=== PATIENT | male | born 1940 | race Caucasian/White ===

== ENCOUNTER 2018-10-24 19:40 | Emergency (ER) | payer MEDICARE, OTHER ==
[2018-10-24 20:17] LABS: Urine Appearance Cloudy; Urine Bacteria Absent (Absent); Urine Bilirubin Negative (Negative); Urine Blood 1+ (Negative); Urine Color Yellow; Urine Glucose Negative (Negative); Urine Ketones Negative (Negative); Urine Nitrite Negative (Negative); Urine Protein Negative (Negative); Urine Red Blood Cell Trace(0-2/hpf) (Absent); Urine Specific Gravity 1.012 (1.010-1.030); Urine Urobilinogen Negative (Negative); Urine White Blood Cell 3+(>20/hpf) (Absent)
[2018-10-24] MEDS ORDERED: Levofloxacin TAB* 500 MG PO ONE (22:22)
--- NOTE | 2018-10-24 22:31 | ED ---
GI/ HPI - HPI Summary HPI Summary: This patient is a 77 year old M presenting to [facility] with a chief complaint of dysuria for 5 days. Patient denies fever and back pain. Patient has a swollen prostate and takes an alpha-1 monster for it. He called his Urologist for an appointment but cannot get an appointment until Tuesday as symptoms have worsened. Patient states he is experiencing diarrhea as well. He has urinated since arriving at the ED. He rates his pain 7/10 in severity. - History of Current Complaint Chief Complaint: EDUrogenitalProblems Time Seen by Provider: 10/24/18 22:08 Stated Complaint: UNABLE TO URINATE Hx Obtained From: Patient Onset/Duration: Started Days Ago Severity: Moderate Current Severity: Moderate Pain Intensity: 7 Location of Pain: None Associated Signs and Symptoms: Positive: Diarrhea, UTI Symptoms Aggravating Factor(s): Urination - Allergy/Home Medications Allergies/Adverse Reactions: Allergies Allergy/AdvReac Type Severity Reaction Status Date / Time MS Tetracycline Allergy Unknown Unknown Verified 12/11/15 16:55 [Tetracycline] Reaction Details PMH/Surg Hx/FS Hx/Imm Hx Endocrine/Hematology History: Denies: Hx Diabetes Musculoskeletal History: Reports: Hx Rheumatoid Arthritis - ARTHRITIS IN BOTH FEET. - Surgical History Surgery Procedure, Year, and Place: Heart operation 07. Umbilical Hernia Repair 25 yrs ago. Cataracts Infectious Disease History: No Infectious Disease History: Denies: Traveled Outside the [place] in Last 30 Days - Family History Known Family History: Positive: Diabetes, Other - RA - Social History Alcohol Use: None Substance Use Type: Reports: None Smoking Status (MU): Never Smoked Tobacco Review of Systems Negative: Fever Positive: Diarrhea Positive: dysuria Negative: Myalgia All Other Systems Reviewed And Are Negative: Yes Physical Exam - Summary Physical Exam Summary: VITAL SIGNS: Reviewed. GENERAL: Patient is a well-developed and nourished MALE who is lying comfortable in the stretcher. Patient is not in any acute respiratory distress. HEAD AND FACE: No signs of trauma. No ecchymosis, hematomas or skull depressions. No sinus tenderness. EYES: PERRLA, EOMI x 2, No injected conjunctiva, no nystagmus. EARS: Hearing grossly intact. Ear canals and tympanic membranes are within normal limits. MOUTH: Oropharynx within normal limits. NECK: Supple, trachea is midline, no adenopathy, no JVD, no carotid bruit, no c- spine tenderness, neck with full ROM. CHEST: Symmetric, no tenderness at palpation LUNGS: Clear to auscultation bilaterally. No wheezing or crackles. CVS: Regular rate and rhythm, S1 and S2 present, no murmurs or gallops appreciated. ABDOMEN: Soft, non-tender. No signs of distention. No rebound no guarding, and no masses palpated. Bowel sounds are normal. EXTREMITIES: FROM in all major joints, no edema, no cyanosis or clubbing. NEURO: Alert and oriented x 3. No acute neurological deficits. Speech is normal and follows commands. SKIN: Dry and warm Triage Information Reviewed: Yes Vital Signs On Initial Exam: Initial Vitals Temp Pulse Resp BP Pulse Ox 97.5 F 70 18 149/79 96 10/24/18 19:50 10/24/18 19:50 10/24/18 19:50 10/24/18 19:50 10/24/18 19:50 Vital Signs Reviewed: Yes Diagnostics - Vital Signs Vital Signs Temp Pulse Resp BP Pulse Ox 10/24/18 21:53 97.8 F 72 20 170/95 95 10/24/18 19:50 97.5 F 70 18 149/79 96 - Laboratory Lab Results: Lab Results 10/24/18 Range/Units 20:00 Urine Color Yellow Urine Appearance Cloudy Urine pH 6.0 (5-9) Ur Specific [place] 1.012 (1.010-1.030) Urine Protein Negative (Negative) Urine Ketones Negative (Negative) Urine Blood 1+ A (Negative) Urine Nitrate Negative (Negative) Urine Bilirubin Negative (Negative) Urine Urobilinogen Negative (Negative) Ur Leukocyte Esterase 3+ A (Negative) Urine WBC (Auto) 3+(>20/hpf) A (Absent) Urine RBC (Auto) Trace(0-2/hpf) (Absent) Urine Bacteria Absent (Absent) Urine Glucose Negative (Negative) Lab Statement: Any lab studies that have been ordered have been reviewed, and results considered in the medical decision making process. GIGU Course/Dx - Course Course Of Treatment: his patient is a 77 year old M presenting to [facility] with a chief complaint of dysuria for 5 days. Urine labs were remarkable for infection. Patient was given anitbiotics and made an appointment with his Urologist in 3 days. The patient will be treated and discharged. This plan was discussed with the patient and he was agreeable with this plan. - Diagnoses Provider Diagnoses: Cystitis Discharge - Sign-Out/Discharge Documenting (check all that apply): Patient Departure - Discharge - Discharge Plan Condition: Stable Disposition: HOME Prescriptions: Levofloxacin TAB* [Levaquin TAB*] 500 mg PO DAILY #7 tab Patient Education Materials: Urinary Tract Infection in Men (ED) Referrals: Yeni Gunter MD [Primary Care Provider] - Additional Instructions: Return to ED with any new or worsening symptoms. Follow up with Urologist within 3-5 days. - Attestation Statements Document Initiated by Scribe: Yes Documenting Scribe: Santos Farfan Provider For Whom Scribe is Documenting (Include Credential): Heriberto Valerio MD Scribe Attestation: Santos Russell, scribed for Heriberto Valerio MD on 10/24/18 at 2246. Status of Scribe Document: Ready
[2018-10-24 23:05] VITALS: BP 141/92
--- NOTE | 2018-10-27 07:19 | PN ---
Progress Note - Progress Note Date of Service: 10/24/18 Note: Urine culture preliminary grew staph epidermidis 10-25,000 This is likely a contaminant and low colony count However patient was placed on Levaquin, and will not discontinue at this time.
== END 2018-10-24 22:58 | disposition home or self-care (01) ==
LOC: ED 19:40
DX: N30.90 Cystitis, unspecified without hematuria (principal); R30.0 Dysuria; R19.7 Diarrhea, unspecified
CPT/HCPCS: 81003; 81015; 87077; 87086; 87186; 99282

== ENCOUNTER 2018-10-28 17:59 | Emergency (ER) | payer MEDICARE, OTHER ==
--- NOTE | 2018-10-28 19:11 | ED ---
GI/ HPI - HPI Summary HPI Summary: The patient is a 77 y/o M presenting to [facility] with a chief complaint of urinary retention today. He had a altamirano catheter placed three days ago, which was draining normally at first, but then the urine started to come out of urethral meatus instead of the altamirano. He spoke with Dr. Grimaldo and Dr. Hudson, who told the pt to come to the ED. The dull pain is currently rated 2/10 in severity. Voiding aggravates the pain. He denies any changes in BM. - History of Current Complaint Chief Complaint: EDUrogenitalProblems Time Seen by Provider: 10/28/18 18:21 Stated Complaint: CATHETER ISSUES Hx Obtained From: Patient Onset/Duration: Started Hours Ago - today, Still Present Timing: Lasting Hours Severity: Moderate Current Severity: Mild Pain Intensity: 2 Pain Characteristics: Dull Associated Signs and Symptoms: Positive: Other: - NEGATIVE: changes in BM Aggravating Factor(s): Voiding Alleviating Factor(s): Nothing - Allergy/Home Medications Allergies/Adverse Reactions: Allergies Allergy/AdvReac Type Severity Reaction Status Date / Time Tetracyclines Allergy Unknown Verified 10/28/18 18:07 Reaction Details PMH/Surg Hx/FS Hx/Imm Hx Endocrine/Hematology History: Denies: Hx Diabetes Cardiovascular History: Denies: Hx Hypertension Respiratory History: Denies: Hx Asthma Musculoskeletal History: Reports: Hx Rheumatoid Arthritis - ARTHRITIS IN BOTH FEET. Opthamlomology History: Denies: Hx Legally Blind EENT History: Denies: Hx Deafness - Surgical History Surgery Procedure, Year, and Place: Heart operation 07. Umbilical Hernia Repair 25 yrs ago. Cataracts Infectious Disease History: No Infectious Disease History: Denies: Traveled Outside the [place] in Last 30 Days - Family History Known Family History: Positive: Diabetes, Other - RA - Social History Alcohol Use: None Hx Substance Use: No Substance Use Type: Reports: None Hx Tobacco Use: No Smoking Status (MU): Never Smoked Tobacco Do You Chew or Dip Tobacco: No Review of Systems Positive: Other - NEGATIVE: changes in BM Positive: other - urinary retention through catheter not draining properly All Other Systems Reviewed And Are Negative: Yes Physical Exam - Summary Physical Exam Summary: Appearance: Well-appearing, Well-nourished, lying in bed comfortable Skin: Warm, dry, no obvious rash Eyes: sclera anicteric, no conjunctival pallor ENT: mucous membranes moist Neck: deferred Respiratory: No signs of respiratory distress Cardiovascular: Appears well perfused, pulses are nml Abdomen: deferred Musculoskeletal: Moving all 4 extremities without obvious discomfort Neurological: Awake and alert, mentation is normal, speech is fluent and appropriate Psychiatric: affect is normal, does not appear anxious or depressed Triage Information Reviewed: Yes Vital Signs On Initial Exam: Initial Vitals Temp Pulse Resp BP Pulse Ox 97.3 F 75 16 131/56 97 10/28/18 18:07 10/28/18 18:07 10/28/18 18:07 10/28/18 18:07 10/28/18 18:07 Vital Signs Reviewed: Yes Diagnostics - Vital Signs Vital Signs Temp Pulse Resp BP Pulse Ox 10/28/18 18:07 97.3 F 75 16 131/56 97 - Laboratory Lab Statement: Any lab studies that have been ordered have been reviewed, and results considered in the medical decision making process. GIGU Course/Dx - Course Course Of Treatment: The patient is a 77 y/o M presenting to [facility] with a chief complaint of urinary retention today. He had a altamirano catheter placed three days ago, which was draining normally at first, but then the urine started to come out of urethral meatus instead of the altamirano. He denies changes in BM. Physical exam shows no significant abnormalities. In the ED course, the patient was able to continue urinating into the altamirano after the nurse, Imelda Frances, readjusted the balloon. He is diagnosed with urinary retention. He will be discharged home with education materials and follow up with PCP and Dr. Hudson as needed. He agrees with this plan and understands the need for return to the ED if symptoms worsen or new ones appear. - Diagnoses Provider Diagnoses: Urinary retention Discharge - Sign-Out/Discharge Documenting (check all that apply): Patient Departure - Patient will be discharged home. - Discharge Plan Condition: Improved Disposition: HOME Patient Education Materials: Altamirano Catheter Placement and Care (ED) Referrals: Roland Hudson MD [Medical Doctor] - 3 Days Yeni Gunter MD [Primary Care Provider] - 3 Days Additional Instructions: Follow up with your primary care provider in 3 days. Follow up with Dr. Hudson, urology, if the issue persists. Return to the emergency department for any new or worsening symptoms. - Billing Disposition and Condition Condition: IMPROVED Disposition: Home - Attestation Statements Document Initiated by Johann: Yes Documenting Katiibbrannon: Marycarmen Acevedo Provider For Whom Johann is Documenting (Include Credential): Dr. Mahamed Esteban MD Scribe Attestation: Marycarmen Russell scribed for Dr. Mahamed Esteban MD on 10/28/18 at 2049. Scribe Documentation Reviewed: Yes Provider Attestation: The documentation as recorded by the Marycarmen albrecht accurately reflects the service I personally performed and the decisions made by me, Dr. Mahamed Esteban MD Status of Scrwily Document: Viewed
[2018-10-28 19:18] VITALS: BP 000/00
== END 2018-10-28 19:18 | disposition home or self-care (01) ==
LOC: ED 17:59
DX: R33.9 Retention of urine, unspecified (principal); Z88.1 Allergy status to other antibiotic agents
CPT/HCPCS: 99281

== ENCOUNTER 2018-12-18 08:23 | Observation (INO) | payer MEDICARE, OTHER ==
--- NOTE | 2018-12-11 20:07 | HP ---
CC: Dr. Gunter; Dr. Ramirez * ADMITTING HISTORY AND PHYSICAL: DATE OF ADMISSION: 12/18/18 ADMITTING DIAGNOSES: 1. Benign prostatic hypertrophy. 2. Urinary retention. PLANNED PROCEDURE: Transurethral resection of prostate. SURGEON: Dr. Hudson. HISTORY OF PRESENT ILLNESS: Alonso Kumari is a 78-year-old gentleman with longstanding symptoms of prostate enlargement, who has been on Uroxatral 10 mg daily and also has been on Avodart 0.5 mg daily for the last several months. He has a longstanding history of increased postvoid residual, but lately has been in urinary retention and has failed voiding trials. He desires and is now being brought in for transurethral resection of prostate in an effort to get rid of the Wiggins catheter. PAST MEDICAL HISTORY: Significant for: 1. John's syndrome. 2. History of atrial fibrillation. 3. History of pericardial effusion. 4. High cholesterol. MEDICATIONS ON ADMISSION: 1. Humira 40 mg subcutaneously every other week. 2. Sotalol 80 mg half tablet twice a day. 3. Timolol eye drops 1 drop twice a day in left eye (for glaucoma). 4. Saw palmetto 500 mg daily. 5. Magnesium 400 mg daily. 6. Dutasteride 0.5 mg daily. ALLERGIES: TETRACYCLINE. REVIEW OF SYSTEMS: He denies any chest pain or shortness of breath. PHYSICAL EXAMINATION GENERAL: Reveals a pleasant, elderly, overweight gentleman. VITAL SIGNS: Blood pressure is 104/68, pulse 67 per minute and regular, oxygen saturation 96% on room air. LUNGS: Clear bilaterally. CARDIOVASCULAR: Regular rate and rhythm. S1, S2. ABDOMEN: Soft without masses. A Wiggins catheter is in place draining clear urine. IMPRESSION: A 78-year-old gentleman with longstanding history of benign prostatic hypertrophy and increased postvoid residual and a more recent history of urinary retention, who has failed voiding trials and failed medical therapy. I discussed the procedure of transurethral resection of prostate including possible risks of bleeding, infection, persistent urinary retention, and erectile and ejaculatory dysfunction. All of his questions have been answered. PLAN: Plan is transurethral resection of prostate. [id number]/[facility] #: [id number] [facility]
[~2018-12-18 08:23] MED LIST: Buffered Lidocaine 1% SYRIN* 1 ML/SYRINGE INTRADERM ONE; Famotidine IV* 10 MG/ML 2 ML (20 mg) IV ONE; Gentamicin ADULT (*) 180 MG in NS 0.9% 100 ML* 100 ML IVPB ONE; Lactated Ringers 1000 ML Bag* 1,000 ML IV SCH
[2018-12-18] MEDS ORDERED: Famotidine IV* 10 MG/ML 2 ML (20 mg) ONE (08:58)
[2018-12-18] MEDS ORDERED: cefTRIAXone(*) 2 GM ADDV.VIAL IVPB ONE (08:59)
[2018-12-18] MEDS ORDERED: Dexamethasone IV* 4 MG/ML 1 ML (4 MG) ONE (09:57)
[2018-12-18] MEDS ORDERED: Propofol* 10 MG/ML 20 ML BTL ONE ×2 (09:57→11:34)
[2018-12-18] MEDS ORDERED: Midazolam* 1 MG/ML 5 ML VIAL (5 MG) ONE (09:57)
[2018-12-18] MEDS ORDERED: fentaNYL* 50 MCG/ML 2 ML VIAL (100 MCG VIAL) ONE (09:57)
[2018-12-18] MEDS ORDERED: Ondansetron INJ* 2 MG/ML VIAL ONE (09:57)
[2018-12-18] MEDS ORDERED: Lidocaine 2% PF * 5 ML VIAL ONE (09:57)
[2018-12-18] MEDS ORDERED: Naloxone* 0.4 MG/ML 1 ML VIAL IV PRN (11:23)
[2018-12-18] MEDS ORDERED: fentaNYL* 50 MCG/ML 2 ML VIAL (100 MCG VIAL) IV PRN (11:23)
[2018-12-18] MEDS ORDERED: EPHEDrine (Pressors)* 50 MG/ML VIAL ONE (11:34)
[2018-12-18] MEDS ORDERED: Furosemide IV* 10 MG/ML 2 ML VIAL (20 MG) ONE (11:38)
[2018-12-18 15:02] LABS: BUN/Creatinine Ratio 22.1 (8-20); Calcium 9.1 mg/dL (8.6-10.3); EGFR African American 83.4 (>60); EGFR Non-African American 68.9 (>60); Potassium 3.9 mmol/L (3.5-5.0)
[2018-12-18] MEDS: Latanoprost 0.005%* 2.5 ml BTL BOTH EYES SCH ×2 (18:38→19:55)
[2018-12-18] MEDS: Nystatin TOP POWDER* 15 GM BTL TOPICAL SCH (19:55)
[2018-12-18] MEDS: Sotalol TAB* 80 MG PO SCH (19:55)
[2018-12-18] MEDS: PTO:Timolol 0.5% OPTH.SOL* BTL LEFT EYE SCH (20:36)
[2018-12-18] MEDS: Lactated Ringers 1000 ML Bag* 1,000 ML IV SCH (20:42)
[2018-12-18] MEDS: CMCS:Brimonidine P 0.15%(NF) OPH SOL 5 ML BTL BOTH EYES SCH (21:37)
--- NOTE | 2018-12-18 22:40 | OP ---
CC: Dr. Gunter * DATE OF OPERATION: 12/18/18 - ROOM #340 DATE OF : 38 SURGEON: Dr. Hudson. ANESTHESIOLOGIST: Dr. Nolan. ANESTHESIA: Spinal. PRE-OP DIAGNOSES: 1. Benign prostatic hypertrophy. 2. Urinary retention. POST-OP DIAGNOSES: 1. Benign prostatic hypertrophy. 2. Urinary retention. OPERATIVE PROCEDURE: 1. Transurethral resection of prostate. 2. Transurethral incision of bladder neck. COMPLICATIONS: None. BLOOD LOSS: Approximately 100 cc. SPECIMEN: Prostate chips. INDICATIONS: Alonso Kumari is a 78-year-old gentleman with a long standing history of symptoms related to benign prostatic hypertrophy. He has recently been in urinary retention and has failed voiding trials and has failed medical therapy. DESCRIPTION OF PROCEDURE: After induction of the spinal anesthesia, the patient was placed in the dorsal lithotomy position. Sequential compression devices were in place and functioning. Initial evaluation revealed a normal appearing urethra, a markedly enlarged prostate and a trabeculated bladder with expected catheter induced inflammatory response in the posterior bladder wall. Transurethral resection of the prostate was carried out from the bladder neck down to the veru, the median lobe was resected, followed by the lateral lobe and then anterior tissue. At no point was the resection carried beyond the veru in an effort to avoid any potential injury to the sphincter. The resected tissue was removed from the bladder using Ellik evacuator. At the end of the procedure, hemostasis appeared satisfactory and a 24-Ma[place] Wiggins catheter was introduced without difficulty. The patient tolerated the procedure satisfactorily and was transferred back to the recovery area in stable condition. [id number]/[facility] #: [id number] [facility]
[2018-12-19] MEDS: Lactated Ringers 1000 ML Bag* 1,000 ML IV SCH (03:16)
[2018-12-19] MEDS: PTO:Timolol 0.5% OPTH.SOL* BTL LEFT EYE SCH (08:42)
[2018-12-19] MEDS: CMCS:Brimonidine P 0.15%(NF) OPH SOL 5 ML BTL BOTH EYES SCH (08:43)
[2018-12-19] MEDS: Sotalol TAB* 80 MG PO SCH (08:50)
[2018-12-19] MEDS: Nystatin TOP POWDER* 15 GM BTL TOPICAL SCH (08:51)
[2018-12-19 08:53] VITALS: BP 121/55
[2018-12-19] MEDS ORDERED: MAGNESIUM OXIDE PO SCH (09:00)
[2018-12-19] MEDS ORDERED: cefTRIAXone(*) 2 GM in NS 0.9% 100 ML* 100 ML IVPB ONE (09:00)
--- NOTE | 2018-12-19 20:43 | DS ---
CC: Dr. Gunter * DISCHARGE SUMMARY: DATE OF ADMISSION: 12/18/18 DATE OF DISCHARGE: 12/19/18 ADMITTING DIAGNOSES: 1. Benign prostatic hypertrophy. 2. Urinary retention. DISCHARGE DIAGNOSES: 1. Benign prostatic hypertrophy. 2. Urinary retention. SURGICAL PROCEDURES DONE THIS ADMISSION: On 12/18/18, transurethral resection of prostate. ADMITTING HISTORY AND HOSPITAL COURSE: Alonso Kumari is a 78-year-old gentleman with a longstanding history of BPH and a recent history of urinary retention, who has failed medical therapy. For details, please see admitting history and physical. HOSPITAL COURSE: On 12/18/18, Mr. Kumari underwent transurethral resection of prostate under spinal anesthesia. Surgery was smooth and uneventful. He was monitored postoperatively, and I saw him on the evening on 12/18/18 and also in the morning on 12/19/18. His Wiggins catheter was draining clear urine, and he was comfortable. He was discharged home with the Wiggins in place for followup as per outpatient protocol. [id number]/[facility] #: [id number] SHE[facility]
== END 2018-12-19 10:35 | disposition home or self-care (01) ==
LOC: OR 08:23 → SSU 10:25
PROVIDERS: ADMIT Urology; ATTEND Urology
DX: N40.0 Benign prostatic hyperplasia without lower urinary tract symptoms (principal); R33.9 Retention of urine, unspecified; M02.30 Reiter's disease, unspecified site; I48.91 Unspecified atrial fibrillation; E78.00 Pure hypercholesterolemia, unspecified
CPT/HCPCS: 36415; 80048; 88305; 96374; 96375; A9270-GY; G0378; J0696; J1100; J1580; J1940; J2250; J2405; J2704; J3010